=== PATIENT | female | born 1945 | race Caucasian/White ===

== ENCOUNTER 2017-02-12 18:01 | Observation (INO) ==
[2017-02-12 19:25] LABS: Basophils # (Auto) 0 K/mcL (0.0-0.3); Basophils % (Auto) 0.1 % (0.0-2.0); Eosinophils # (Auto) 0.3 K/mcL (0.0-0.7); Eosinophils % (Auto) 2.4 % (0.0-7.0); Granulocytes % (Auto) 83.9 % (38.0-78.0); Lymphocytes # (Auto) 1.1 K/mcL (1.5-4.8); Mean Cell Volume 90.4 fL (80.0-100.0); Mean Corpuscular Hemoglobin 29.8 pg (26.0-34.0); Monocytes # (Auto) 0.8 K/mcL (0.1-0.9); Monocytes % (Auto) 5.6 % (1.0-12.0); Platelet Count 286 K/mcL (140-440); RBC 4.25 M/mcL (4.00-5.20); Red Cell Distribution Width 14.5 % (11.5-14.5)
--- NOTE | 2017-02-12 19:32 | XRay Report ---
CLINICAL INFORMATION: Cough. Hypoxia. TECHNIQUE: Upright PA and lateral chest x-ray COMPARISON: Previous chest x-rays dated 03/20/2014 and 12/20/2009. Previous CT scan dated 04/01/2014 FINDINGS: Increased AP diameter and appearance consistent with COPD. Previous CT scan demonstrated extensive centrilobular emphysema suggesting smoking history. Heart size is within normal limits. Pulmonary vascularity is prominent consistent pulmonary congestion. This is unchanged. No pulmonary edema. Focal pleural-based density in the left lateral hemithorax. This is new since previous examinations. This may be benign but chest CT scan is recommended to exclude neoplasm. There is blunting of the costophrenic angles bilaterally. Findings are stable. No thoracic compression fractures. IMPRESSION: 1. COPD with history of centrilobular edema 2. Focal pleural-based density in the left lateral hemithorax. This is new since previous examinations. Chest CT scan recommended. 3. No evidence for congestive heart failure. No other focal pulmonary parenchymal abnormalities. Interpreted and Authenticated by: Ford Feliz 02/12/17
[2017-02-12 19:48] LABS: ALT/SGPT 19 U/l (0-40); Albumin 3.9 gm/dL (3.2-5.2); Albumin/Globulin Ratio 1.5 (1.0-2.3); Alkaline Phosphatase 81 U/L (39-117); Blood Urea Nitrogen 14 mg/dl (8-23)
--- NOTE | 2017-02-12 20:33 | Emergency Department Note ---
SOB HPI - General Chief Complaint: Shortness of Breath/Dyspnea Stated Complaint: COPD exacerbation Time Seen by Provider: 02/12/17 18:36 Source: patient Mode of arrival: EMS Limitations: no limitations - History of Present Illness The patient is a pleasant 71-year-old female with a history of COPD who presents with progressive shortness of breath. She reports it began a couple of days ago. She saw her primary care physician 2 days ago for this. She wasn' t on any antibiotics. Patient is also endorsing a mild productive cough with thick white sputum. She felt warm today but didn't take her temperature. Is chronically on 2 L of oxygen for her COPD but has had to increase that to 4 L to keep her oxygen saturations above 90%. Has home nebulizer with DuoNeb and has a home albuterol inhaler. She is uses nebulizer 4 times today and the inhaler a couple times. She reports that her primary care physician has been wanting to put her on a medication called Arnuity Elliptra. She has not yet started that. Patient's air-conditioning went on the house that she feels that the extra he really has contributed to her shortness of breath. She denies any nausea, vomiting or diarrhea. Also has history of osteoporosis and is on medication for that. Still smokes occasionally. MD Complaint: shortness of breath, cough Onset (ago): day(s) (3) Severity: moderate Improves with: oxygen, rest Worsens with: exertion Known history of: COPD Associated symptoms: Reports: denies other symptoms Treatment prior to arrival: oxygen - Related Data Home Medications Medication Instructions Recorded Confirmed acetaminophen 500 mg tablet 1,000 mg PO Q6H PRN tab 01/16/15 02/12/17 ascorbic acid (vitamin C) 500 mg 500 mg PO QDAY tab 01/16/15 02/12/17 tablet aspirin 81 mg tablet,delayed 81 mg PO .QOD tab 01/16/15 02/12/17 release calcium carbonate 600 mg (1,500 1 tab PO Q72 tab 01/16/15 02/12/17 mg)-vitamin D3 200 unit tablet cetirizine 10 mg capsule 10 mg PO QDAY PRN cap 01/16/15 02/12/17 multivitamin tablet 1 tab PO QDAY tab 01/16/15 02/12/17 omega-3 fatty acids 1,000 mg 1,000 mg PO QDAY cap 01/16/15 02/12/17 capsule Fluticasone Furoate [Arnuity 200 mcg INHALATION QDAY 02/12/17 02/12/17 Ellipta] Previous Rx's Medication Instructions Recorded potassium chloride ER 10 mEq 10 meq PO .QOD #45 cap 05/12/16 capsule,extended release teriparatide 20 mcg/dose (600 20 mcg SUB-Q QDAY #2.4 ml 10/12/16 mcg/2.4 mL) subcutaneous pen injector albuterol sulfate 90 mcg/actuation 2 puff INHALATION .Q4-6H PRN #360 11/08/16 breath activated powder inhaler puff hydrochlorothiazide 12.5 mg capsule 12.5 mg PO QDAY 90 Days 01/10/17 nitrofurantoin macrocrystal 100 mg 100 mg PO BID #14 cap 02/04/17 capsule amlodipine 10 mg tablet 10 mg PO QDAY 90 Days 02/09/17 ipratropium-albuterol 0.5 mg-3 3 ml INHALATION Q4-6H #540 ml 02/09/17 mg(2.5 mg base)/3 mL nebulization soln Allergies Allergy/AdvReac Type Severity Reaction Status Date / Time azithromycin Allergy Unknown Unknown Verified 02/10/17 10:34 codeine [CODEINE] Allergy Unknown TACYCARDIA Verified 02/10/17 10:34 House Dust Allergy Unknown Unknown Verified 02/10/17 10:34 niacin Allergy Unknown Unknown Verified 02/10/17 10:34 Fpdugep-Sqk-Xno Reductase Allergy Unknown Unknown Verified 02/10/17 10:34 Inhibitor Sulfa (Sulfonamide Allergy Unknown Hives Verified 02/10/17 10:34 Antibiotics) animal dander Allergy Unknown Unknown Uncoded 02/10/17 10:34 iv dye Allergy Unknown Unknown Uncoded 02/10/17 10:34 tape Allergy Unknown Unknown Uncoded 02/10/17 10:34 Review of Systems All systems ED: reviewed and negative except as stated. Past Medical History - Past Medical History Attestation: Yes: The following information was validated with the patient. Medical history: Reports: hyperlipidemia, hypertension, osteoporosis Surgical history ED: Reports: non-contributory - Social History smoking status: Current every day smoker Physical Exam - General Limitations: no limitations General appearance: alert, in no apparent distress, other (supplemental oxygen on, hair turbin on) - Head Head exam: atraumatic - Eye Eye exam: Present: normal appearance - ENT ENT exam: normal exam - Neck Neck exam: Present: normal inspection - Chest Chest inspection: Present: normal inspection, symmetric chest wall rise - Respiratory Respiratory exam: Present: other (rhonchi appreciated in the RLL, poor air movement diffusely, no wheezing appreciated) - Cardiovascular Cardiovascular exam: Present: regular rate, normal rhythm - Abdominal Exam Abdominal exam: Present: soft, normal bowel sounds - Neurological Exam Neurological exam: Present: alert, oriented X3 - Psychiatric Psychiatric exam: Present: normal affect, normal mood - Skin Skin exam: Present: warm, dry Course Course Narrative: Patient presents with symptoms of shortness of breath and a productive cough. She is requiring 4 L of oxygen to maintain her saturations in the 90s. Workup to include chest x-ray, lab work. Differential includes COPD exacerbation, pneumonia, heat stroke or bronchitis. Vital Signs Temperature 97.7 F 02/12/17 18:04 Pulse Rate 97 H 02/12/17 18:04 Respiratory Rate 20 02/12/17 18:04 Pulse Oximetry (%) 93 02/12/17 18:04 Temperature 97.7 F 02/12/17 18:04 Pulse Rate 85 02/12/17 22:10 Respiratory Rate 19 02/12/17 18:46 Blood Pressure 130/70 02/12/17 22:00 Pulse Oximetry (%) 94 02/12/17 22:10 Shortness of Breath/Dyspnea - [facility] Narrative Medical decision making narrative: Patient's chest x-ray returned showing increased pleural thickening on the left lower lateral costal margin compared to March 2014. Increased patchy scarlike opacity is were seen. No lung masses appreciated. Other than the mild leukocytosis at 13.5 patient had otherwise normal labs and vitals. She is requiring 4 L of supplemental oxygen to maintain her saturations. I feel that this picture is most likely a COPD exacerbation and will treat with prednisone and azithromycin. I feel that she warrants being admitted for further poor and treatment. Spoke to the the on-call hospitalist who graciously agreed to admit. - Lab Data Lab results reviewed: Yes I reviewed the patient's lab results. Result diagrams: 02/12/17 18:46 02/12/17 18:46 Lab Results 02/12/17 02/12/17 02/12/17 Range/Units 18:37 18:46 18:46 WBC 13.5 H (4.5-11.0) K/mcL RBC 4.25 (4.00-5.20) M/mcL Hgb 12.7 (12.0-15.0) g/dL Hct 38.4 (36.0-48.0) % MCV 90.4 (80.0-100.0) fL MCH 29.8 (26.0-34.0) pg MCHC 33.0 (31.0-36.0) g/dL RDW 14.5 (11.5-14.5) % Plt Count 286 (140-440) K/mcL MPV 10.1 (7.4-10.4) fL Gran % 83.9 H (38.0-78.0) % Lymph % (Auto) 8.0 L (15.5-49.0) % Meigs % (Auto) 5.6 (1.0-12.0) % Eos % (Auto) 2.4 (0.0-7.0) % Baso % (Auto) 0.1 (0.0-2.0) % Gran # 11.3 H (1.8-8.0) K/mcL Lymph # (Auto) 1.1 L (1.5-4.8) K/mcL Meigs # (Auto) 0.8 (0.1-0.9) K/mcL Eos # (Auto) 0.3 (0.0-0.7) K/mcL Baso # (Auto) 0 (0.0-0.3) K/mcL Sodium 136 (133-145) mmol/L Potassium 3.8 (3.3-5.1) mmol/L Chloride 92 L (96-108) mmol/L Carbon Dioxide 30 (22-30) mmol/L Anion Gap 14.0 (8-16) BUN 14 (8-23) mg/dl Creatinine 0.6 (0.6-1.1) mg/dl GFR Calculation 90 Glucose 247 H (70-105) mg/dL Calcium 9.1 (8.6-10.4) mg/dl Total Bilirubin < 0.2 (0.0-1.0) mg/dL AST 19 (0-37) U/l ALT 19 (0-40) U/l Alkaline Phosphatase 81 (39-117) U/L Total Protein 6.5 (5.9-8.4) gm/dL Albumin 3.9 (3.2-5.2) gm/dL Globulin 2.6 (2.2-3.7) gm/dL Albumin/Globulin Ratio 1.5 (1.0-2.3) Procalcitonin < 0.10 (<0.10) ng/mL - Radiology Data Radiology results reviewed: Yes I reviewed the patient's radiology results. "Increased pleural thickening along the left lower lateral costal margin compared to march 2014. Increased patchy scarlike opacities as above. No focal lung mass.: Disposition Clinical Impression: Acute exacerbation of chronic obstructive airways disease Disposition: Xfer As Inpt ([facility]) Condition: Fair Referrals: Martinez Salamanca PA-C [Primary Care Provider] -
[2017-02-12] MEDS ORDERED: predniSONE 20 MG TABLET PO ONE (22:19)
[2017-02-12] MEDS ORDERED: NALOXONE HCL 0.4 MG/ML VIAL IV PRN (23:40)
[2017-02-12] MEDS ORDERED: ONDANSETRON 4 MG/2 ML VIAL IV PRN (23:40)
[2017-02-12] MEDS ORDERED: HYDROcodone/APAP 5/325MG TABLET PO PRN (23:40)
[2017-02-12] MEDS ORDERED: ACETAMINOPHEN 325 MG TABLET PO PRN (23:40)
[2017-02-12] MEDS ORDERED: methylPREDNISolone SOD SUCC 125 MG/2 ML VIAL ONE ×2 (23:47)
--- NOTE | 2017-02-13 00:05 | Internal Med History&Physical ---
Medical - H&P: [facility] Patient information: Note initiated : 02/13/17 at 12:00 am Service Date, if different from initiated Date: [] Patient: Sangeetha Robertson 71 y/o F admitted on 02/12/17 for COPD exacerbation. Chief Complaint: [] History of present illness: Ms. Robertson is a 71 year old Female with h/o copd on 2 L home oxygen present to the ER with complaints of shortness of breath which has been going on for last few days. She notes that her AC broke down and this heat has been bothering her a lot. 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 SOB is associated with cough, whitish yellowish sputum, no hemoptysis. SOB better with rest and worse with activity, has tried using inhalers at home. she notes that her daughter may have been sick recently. she is on oral abx for UTI from her pcp and was seen recently there, even then there was increased oxygen requirement and increased shortness of breath, however it was deemed due to weather being hot? The patient otherwise does not report of any other issue. IN the ER she was no the to be hypoxic needing 4L oxygen and wheezing on exzam, WBC Was elevated, CXR neg for pna, some left sided pleural density noted, CT chest was done which showed pleural thickeing. Pt notes that she has had h/o pleurisy which later progressed to abscess and she needed thorocotomy for same. All systems: reviewed and no additional remarkable complaints except as stated ( as in HPI) Medical - H&P: PMH Medical history: Medical History (Last Updated 02/12/17 @ 22:19 by Althea Ramos MD) Adverse drug reaction (Chronic) Arm fracture (Chronic) Back pain (Chronic) COPD (chronic obstructive pulmonary disease) (Chronic) Foot fracture (Chronic) Hives (Chronic) Hyperglycemia (Chronic) Hypertension (Chronic) Kyphosis (acquired) (postural) (Chronic) Lung abscess (Chronic) Nuclear sclerosis (Chronic) Osteoarthritis (Chronic) Osteoporosis (Chronic) Ovarian cyst (Chronic) Tobacco abuse (Chronic) Surgical history: Past Surgical History (Last Updated 12/23/16 @ 14:23 by [place]) H/O: hysterectomy (Chronic) History of lung surgery (Chronic) History of throat surgery (Chronic) Hx of tonsillectomy (Chronic) S/P bladder repair (Chronic) Pertinent family history: Family History Mother Myocardial Infarction Psychiatric care Father Diabetes mellitus Acute myocardial infarction Alcohol abuse Grandmother Cerebrovascular accident Brother Alcohol abuse Medical - H&P: Meds Home Medications Medication Instructions Recorded Confirmed Type acetaminophen 500 mg tablet 1,000 mg PO Q6H PRN tab 01/16/15 02/12/17 History ascorbic acid (vitamin C) 500 mg 500 mg PO QDAY tab 01/16/15 02/12/17 History tablet aspirin 81 mg tablet,delayed 81 mg PO .QOD tab 01/16/15 02/12/17 History release calcium carbonate 600 mg (1,500 1 tab PO Q72 tab 01/16/15 02/12/17 History mg)-vitamin D3 200 unit tablet cetirizine 10 mg capsule 10 mg PO QDAY PRN cap 01/16/15 02/12/17 History multivitamin tablet 1 tab PO QDAY tab 01/16/15 02/12/17 History omega-3 fatty acids 1,000 mg 1,000 mg PO QDAY cap 01/16/15 02/12/17 History capsule potassium chloride ER 10 mEq 10 meq PO .QOD #45 cap 05/12/16 02/12/17 Rx capsule,extended release teriparatide 20 mcg/dose (600 20 mcg SUB-Q QDAY #2.4 ml 10/12/16 02/12/17 Rx mcg/2.4 mL) subcutaneous pen injector albuterol sulfate 90 mcg/actuation 2 puff INHALATION .Q4-6H PRN #360 11/08/16 Rx breath activated powder inhaler puff hydrochlorothiazide 12.5 mg capsule 12.5 mg PO QDAY 90 Days 01/10/17 02/12/17 Rx nitrofurantoin macrocrystal 100 mg 100 mg PO BID #14 cap 02/04/17 02/12/17 Rx capsule amlodipine 10 mg tablet 10 mg PO QDAY 90 Days 02/09/17 02/12/17 Rx ipratropium-albuterol 0.5 mg-3 3 ml INHALATION Q4-6H #540 ml 02/09/17 02/12/17 Rx mg(2.5 mg base)/3 mL nebulization soln Fluticasone Furoate [Arnuity 200 mcg INHALATION QDAY 02/12/17 02/12/17 History Ellipta] Allergies Allergy/AdvReac Type Severity Reaction Status Date / Time azithromycin Allergy Unknown Unknown Verified 02/10/17 10:34 codeine [CODEINE] Allergy Unknown TACYCARDIA Verified 02/10/17 10:34 House Dust Allergy Unknown Unknown Verified 02/10/17 10:34 niacin Allergy Unknown Unknown Verified 02/10/17 10:34 Tygjpgl-Zzh-Tsu Reductase Allergy Unknown Unknown Verified 02/10/17 10:34 Inhibitor Sulfa (Sulfonamide Allergy Unknown Hives Verified 02/10/17 10:34 Antibiotics) animal dander Allergy Unknown Unknown Uncoded 02/10/17 10:34 iv dye Allergy Unknown Unknown Uncoded 02/10/17 10:34 tape Allergy Unknown Unknown Uncoded 02/10/17 10:34 Medical - H&P: Exam - Constitutional Vitals: Temp Pulse Resp BP Pulse Ox 98.5 F 85 25 H 144/76 95 02/12/17 23:36 02/12/17 23:36 02/12/17 23:36 02/12/17 23:36 02/12/17 23:19 Exam: GENERAL: The patient is a well-developed, well-nourished in no apparent distress. Is alert and oriented x3. VITAL SIGNS: Reviewed and as noted elsewhere. HEENT: Head is normocephalic and atraumatic. Extraocular muscles are intact. Pupils are equal, round, and reactive to light. Nares appeared normal. Mouth appears any without lesions. Mucous membranes are moist. NECK: Normal to inspection, Supple, No lymbut air entry is dimished bilaterally , prolonged exp phase, chanda wheezing noted. HEART: Regular rate and rhythm normal, S1 and S2 heard, no Gallop, S3 or Rub Noted, No Gross murmur heard. ABDOMEN: Soft, nontender, and nondistended. Positive bowel sounds. No hepatosplenomegaly was noted. EXTREMITIES: No cyanosis, clubbing, rash, lesions or edema. NEUROLOGIC: Cranial nerves II through XII are grossly intact. Motor and Sensory System Grossly Intact PSYCHIATRIC: Normal affect, Normal Mood. Appropriate Behavior. SKIN: No ulceration or wounds noted, No jaundice, No rash noted. Medical - H&P: Reslt - Labs CBC & Chem 7: 02/12/17 18:46 02/12/17 18:46 Medical - H&P: A/P - Narrative A/P Narrative: a/P Acute on chr resp failure: used to take 2 L oxygen now on 4L, continue oxygen supplementation, treat underlying condition. Acute exaceration of Copd: treat with doxycycline (allergic to zithromax), IV steroids and duonebs, monitor on tele for now. No recent hospital admits or steroids use for copd. UTI: check ua, was on macrobid at home, continue same for now, recent cx neg, HTN: continue home bp meds Osteoporosis: ON teriperitadie, I do not think we have this medication on formulary, advised to get it from home so she can continue her therapy. DVT hep sq Diet regular Activity as tolerated DNR Social History - Tobacco smoking status: Current every day smoker - Tobacco Type tobacco type: cigarettes - Cigarette Details per day: 10 - Quit Details quit date: 08/23/13 - Alcohol alcohol intake frequency: does not drink
[2017-02-13] MEDS ORDERED: IPRATROPIUM/ALBUTEROL 3 ML AMPUL.NEB NEB ONE (00:12)
[2017-02-13] MEDS: IPRATROPIUM/ALBUTEROL 3 ML AMPUL.NEB NEB SCH ×7 (00:16→22:54)
[2017-02-13] MEDS: methylPREDNISolone SOD SUCC 125 MG/2 ML VIAL IV SCH ×4 (00:28→22:13)
[2017-02-13] MEDS: DOXYCYCLINE HYCLATE 100 MG TABLET.ORL PO SCH ×3 (00:29→20:59)
[2017-02-13 01:24] LABS: Appearance,Urine CLEAR; Bacteria,Urine 0 /hpf (0); Bilirubin,Urine NEG (NEG); Color,Urine YELLOW; Glucose,Urine (UA) NEGATIVE (NEG); Leukocyte Esterase,Urine 75 /uL (NEG); Mucus,Urine FEW /hpf (0); Nitrate,Urine NEG (NEG); Protein,Urine NEG (NEG); Specific Gravity,Urine 1.011 (1.000-1.035); Urine Blood NEG mg/dL (<0.03); Urine RBC 1 /hpf (0-1); Urine Squamous Epithelial Cell 2 /hpf (0-4); Urine Transitional Epi Cells < 1 /hpf (0-2); Urine WBC 1 /hpf (0-4); Urobilinogen,Urine NEG (NEG)
[2017-02-13] MEDS ORDERED: methylPREDNISolone SOD SUCC 125 MG/2 ML VIAL ONE (05:34)
--- NOTE | 2017-02-13 07:16 | Cat Scan Report ---
CLINICAL INFORMATION: Smoking history. COPD exacerbation. History of previous partial left pneumonectomy COMPARISON: Chest x-ray dated 02/12/[address] scan dated 04/01/2014 TECHNIQUE: Axial noncontrast enhanced images through the chest. Sagittally and coronally reformatted images. MIP reformatted images. Patient gives a history of contrast allergy FINDINGS: Severe centrilobular emphysema. Previous chest x-ray demonstrated a focal pleural-based density in the left lateral hemithorax. There is nonspecific pleural thickening. Patient gives a history of previous left lung surgery. No left rib mass or fracture. Appearance is consistent with nonspecific pleural thickening and is not considered typical of neoplasm. There is no free pleural fluid. Right lung is negative for focal mass or infiltrate. No pneumonia. Toña and mediastinum are negative to limits of noncontrast enhanced examination. No definite pathologic adenopathy. No axillary or supraclavicular adenopathy. No acute thoracic compression fractures. No rib fractures or lytic lesions. No sternal lesion. Upper abdomen is negative. There is dense calcification of the abdominal aorta. There is dense coronary artery calcification. Examination was initially interpreted by [facility] IMPRESSION: 1. Severe COPD with centrilobular emphysema consistent with smoking history 2. Left lateral pleural thickening appears nonneoplastic. 3. No acute or focal parenchymal infiltrate. 4. Severe calcified atherosclerotic plaque including coronary artery disease Interpreted and Authenticated by: Ford Feliz 02/13/17
[2017-02-13] MEDS ORDERED: MULTIVITAMIN PO SCH (09:00)
[2017-02-13] MEDS ORDERED: CETIRIZINE 10 MG TABLET PO PRN (09:00)
[2017-02-13] MEDS ORDERED: FLUTICASONE FUROATE 200 MCG INHALATION SCH (09:00)
[2017-02-13] MEDS ORDERED: ASPIRIN 81 MG TAB.CHEW PO SCH (09:00)
[2017-02-13] MEDS ORDERED: TERIPARATIDE 20 MCG SUB-Q SCH (09:00)
[2017-02-13 09:11] LABS: Basophils # (Auto) 0 K/mcL (0.0-0.3); Basophils % (Auto) 0.5 % (0.0-2.0); Eosinophils # (Auto) 0 K/mcL (0.0-0.7); Eosinophils % (Auto) 0.1 % (0.0-7.0); Lymphocytes # (Auto) 0.9 K/mcL (1.5-4.8); Lymphocytes % (Auto) 8.8 % (15.5-49.0); Mean Cell Volume 90.2 fL (80.0-100.0); Mean Corpuscular HGB Conc 32.9 g/dL (31.0-36.0); Mean Corpuscular Hemoglobin 29.7 pg (26.0-34.0); Monocytes # (Auto) 0.1 K/mcL (0.1-0.9); Monocytes % (Auto) 0.6 % (1.0-12.0); Platelet Count 272 K/mcL (140-440); RBC 4.58 M/mcL (4.00-5.20); Red Cell Distribution Width 14.4 % (11.5-14.5)
[2017-02-13 09:42] LABS: ALT/SGPT 20 U/l (0-40); Albumin/Globulin Ratio 1.3 (1.0-2.3); Alkaline Phosphatase 84 U/L (39-117); Bilirubin,Direct < 0.2 mg/dL (0.0-0.3); Blood Urea Nitrogen 10 mg/dl (8-23); Gamma Glutamyl Transpeptidase 18 U/L (5-36); Magnesium 1.7 mg/dL (1.6-2.5); Uric Acid 4.7 mg/dL (2.5-8.0)
[2017-02-13] MEDS: HYDROCHLOROTHIAZIDE 12.5 MG CAPSULE PO SCH (11:55)
[2017-02-13] MEDS: ASCORBIC ACID 500 MG TABLET PO SCH (11:55)
[2017-02-13] MEDS: MULTIVIT,THER IRON,CA,FA & MIN 1 TABLET PO SCH (11:56)
[2017-02-13] MEDS: HEPARIN 5,000 UNIT/ML VIAL SQ SCH ×2 (11:58→20:58)
[2017-02-13] MEDS: amLODIPine 10 MG TABLET PO SCH (11:59)
[2017-02-13] MEDS: FAMOTIDINE/PF 20 MG/2 ML VIAL IV SCH ×2 (11:59→20:58)
[2017-02-13] MEDS: FISH OIL 1,000 MG CAPSULE PO SCH (11:59)
[2017-02-13] MEDS: NITROFURANTOIN SR 100 MG CAPSULE PO SCH ×2 (12:02→20:59)
--- NOTE | 2017-02-13 15:25 | Internal Med Progress Note ---
Medical - PN: Subj Patient information: Note initiated : 02/13/17 at 3:22 pm Service Date, if different from initiated Date: [] Patient: Sangeetha Robertson 71 y/o F admitted on 02/12/17 for COPD exacerbation. Chief Complaint: [] Interval history: Ms. Robertson is a 71 year old Female with h/o copd on 2 L home oxygen present to the ER with complaints of shortness of breath which has been going on for last few days. She notes that her AC broke down and this heat has been bothering her a lot. 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 SOB is associated with cough, whitish yellowish sputum, no hemoptysis. SOB better with rest and worse with activity, has tried using inhalers at home. she notes that her daughter may have been sick recently. she is on oral abx for UTI from her pcp and was seen recently there, even then there was increased oxygen requirement and increased shortness of breath, however it was deemed due to weather being hot? The patient otherwise does not report of any other issue. IN the ER she was no the to be hypoxic needing 4L oxygen and wheezing on exzam, WBC Was elevated, CXR neg for pna, some left sided pleural density noted, CT chest was done which showed pleural thickening. Pt notes that she has had h/o pleurisy which later progressed to abscess and she needed thoracotomy for same. 04/16: patient seen examined, sitting comfortably in her chair, still on 4 l oxygen, feels subjectively better today, denies any complaints, besides cough and shortness of breath She is tolerating po well. Pertinent ROS: Denies headache, dizziness Denies chest pain, palpitations Present cough and shortness of breath Denies abdominal pain, nausea or vomiting. - Constitutional Vitals: Vital Signs Temp Pulse Resp BP Pulse Ox 97.0 F 85 22 165/83 93 02/13/17 12:00 02/13/17 12:25 02/13/17 12:25 02/13/17 12:00 02/13/17 12:00 Period Temp Pulse Resp BP Sys/Richter Pulse Ox Last 24 Hr 97.0 F-98.5 F 85-90 18-25 118-165/69-86 90-97 Intake and Output 02/13/17 02/13/17 02/13/17 05:59 13:59 21:59 Intake Total 560 / 560 Output Total 0 / 0 200 / 200 900 / 900 Balance 0 / 0 360 / 360 -900 / -900 Intake & Output: Intake & Output 02/13/17 02/13/17 02/13/17 05:59 13:59 21:59 Intake Total 560 / 560 Output Total 0 / 0 200 / 200 900 / 900 Balance 0 / 0 360 / 360 -900 / -900 Intake: Oral 560 / 560 Output: Void Amount 0 / 0 200 / 200 900 / 900 Other: Meal Breakfast Percent of Meal Consumed 100% Feeding Ability Independent # Voids 1 # Bowel Movements 1 Exam: Constitutional; Afebrile, cooperative, alert, not in distress. Eyes- No icterus, , No periorbital swelling Ears- Ext ear normal, hearing normal to conversation. Neck- Midline trachea, supple Respiratory system: Air Entry equal on both sides, decreased air entry chanda, mild wheeze and prolonged exp phase. CVS- Rate rhythm regular, S1,S2 heard, no gallop, no rub. Abdomen- Soft nontender abdomen, no organomegaly, no tenderness, no guarding or rigidity, GUT PULLER- AOOx3, moving all extremities, no gross focal deficit noted. Medical - PN: Obj Da - Labs CBC & Chem 7: 02/13/17 08:40 02/13/17 08:40 Labs: Abnormal Lab Results 02/13/17 02/13/17 08:40 08:40 Gran % 90.0 H Lymph % (Auto) 8.8 L [place] % (Auto) 0.6 L Gran # 9.4 H Lymph # (Auto) 0.9 L Chloride 91 L Creatinine 0.5 L Glucose 182 H Meds: Medications Acetaminophen (Tylenol) 650 mg PO Q6HP PRN PRN Reason: PAIN/FEVER > 101 Hydrocodone Bitart/Acetaminophen ([place] 5/325mg) 1 tab PO Q4HP PRN PRN Reason: Pain Albuterol/Ipratropium (Duoneb) 3 ml NEB Q4HRT [facility] Last Admin: 02/13/17 12:25 Dose: 3 ml Amlodipine Besylate (Norvasc) 10 mg PO QDAY [facility] Last Admin: 02/13/17 11:59 Dose: 10 mg Ascorbic Acid (Vitamin C) 500 mg PO QDAY [facility] Last Admin: 02/13/17 11:55 Dose: 500 mg Aspirin (Aspirin) 81 mg PO Q48@0900 [facility] Last Admin: 02/13/17 11:55 Dose: 81 mg Calcium/Vitamin D (Calcium W/Vit D3) 500 mg PO Q72@0900 [facility] Cetirizine HCl (Zyrtec) 10 mg PO DAILYP PRN PRN Reason: Allergic Symptoms Doxycycline Hyclate (Doxycycline Hyclate) 100 mg PO BID [facility] Last Admin: 02/13/17 11:56 Dose: 100 mg Famotidine (Pepcid) 20 mg IV Q12 [facility] Last Admin: 02/13/17 11:59 Dose: 20 mg Fish Oil (Fish Oil) 1,000 mg PO DAILY [facility] Last Admin: 02/13/17 11:59 Dose: 1,000 mg Heparin Sodium (Porcine) (Heparin) 5,000 unit SQ Q12 [facility] Last Admin: 02/13/17 11:58 Dose: Not Given Hydrochlorothiazide (Oretic) 12.5 mg PO QDAY [facility] Last Admin: 02/13/17 11:55 Dose: 12.5 mg Iron Carb/Multivit/[place]/Folic Acid (Multivitamin W/Minerals) 1 tab PO DAILY [facility] Last Admin: 02/13/17 11:56 Dose: 1 tab Methylprednisolone Sodium Succinate (Solu-Medrol) 62.5 mg IV Q8 [facility] Last Admin: 02/13/17 15:17 Dose: 62.5 mg Naloxone HCl (Narcan) 0.1 mg IV Q2MIN PRN PRN Reason: Opiate Reversal Nitrofurantoin Macrocrystals (Macrobid) 100 mg PO BID [facility] Last Admin: 02/13/17 12:02 Dose: Not Given Ondansetron HCl (Zofran) 4 mg IV Q4HP PRN PRN Reason: Nausea And Vomiting Fluticasone Furoate [Arnuity Ellipta] 200 Mcg Inhaler 1 dose INH DAILY [facility] Last Admin: 02/13/17 12:03 Dose: Not Given Teriparatide [Forteo (] 20 Mcg Solution) 1 dose SUB-Q QDAY [facility] Potassium Chloride (Kdur) 10 meq PO Q48@0800 [facility] Medical - PN: A/P - Time Spent With Patient Total time spent is greater than 50% in coordination of care (as documented) at patient's floor/unit and/or counseling patient: - Narrative A/P Narrative: a/P Acute on chr resp failure: used to take 2 L oxygen now on 4L, continue oxygen supplementation, treat underlying condition. Acute exaceration of Copd: treat with doxycycline (allergic to zithromax), IV steroids and duonebs, monitor on tele for now. No recent hospital admits or steroids use for copd. subjective she feels better, wheezing better UTI: ua neg, continue macrobid HTN: continue home bp meds Osteoporosis: ON teriparatide, I do not think we have this medication on formulary, advised to get it from home so she can continue her therapy. DVT hep sq Diet regular Activity as tolerated DNR Medical - PN: Qual - VTE Deep Vein Thrombosis/Pulmonary Embolism Present on Admission: No
[2017-02-14] MEDS: IPRATROPIUM/ALBUTEROL 3 ML AMPUL.NEB NEB SCH ×3 (02:56→11:41)
[2017-02-14 05:10] LABS: Basophils # (Auto) 0 K/mcL (0.0-0.3); Basophils % (Auto) 0 % (0.0-2.0); Eosinophils # (Auto) 0 K/mcL (0.0-0.7); Eosinophils % (Auto) 0 % (0.0-7.0); Granulocytes % (Auto) 89.8 % (38.0-78.0); Lymphocytes # (Auto) 1.3 K/mcL (1.5-4.8); Mean Cell Volume 90.6 fL (80.0-100.0); Mean Corpuscular Hemoglobin 29.9 pg (26.0-34.0); Monocytes # (Auto) 0.3 K/mcL (0.1-0.9); Monocytes % (Auto) 2.2 % (1.0-12.0); Platelet Count 262 K/mcL (140-440); RBC 4.14 M/mcL (4.00-5.20); Red Cell Distribution Width 14.4 % (11.5-14.5)
[2017-02-14] MEDS: methylPREDNISolone SOD SUCC 125 MG/2 ML VIAL IV SCH (05:43)
[2017-02-14 05:46] LABS: ALT/SGPT 21 U/l (0-40); Albumin/Globulin Ratio 1.6 (1.0-2.3); Alkaline Phosphatase 71 U/L (39-117); Bilirubin,Direct < 0.2 mg/dL (0.0-0.3); Blood Urea Nitrogen 14 mg/dl (8-23); Gamma Glutamyl Transpeptidase 17 U/L (5-36); Uric Acid 5.4 mg/dL (2.5-8.0)
[2017-02-14] MEDS ORDERED: POTASSIUM CHLORIDE 10 MEQ TABLET PO SCH (08:00)
[2017-02-14] MEDS: HYDROCHLOROTHIAZIDE 12.5 MG CAPSULE PO SCH (08:32)
[2017-02-14] MEDS: amLODIPine 10 MG TABLET PO SCH (08:32)
[2017-02-14] MEDS: FISH OIL 1,000 MG CAPSULE PO SCH (08:33)
[2017-02-14] MEDS: ASCORBIC ACID 500 MG TABLET PO SCH (08:33)
[2017-02-14] MEDS: MULTIVIT,THER IRON,CA,FA & MIN 1 TABLET PO SCH (08:33)
[2017-02-14] MEDS: DOXYCYCLINE HYCLATE 100 MG TABLET.ORL PO SCH (08:33)
[2017-02-14] MEDS: FAMOTIDINE/PF 20 MG/2 ML VIAL IV SCH (08:34)
[2017-02-14] MEDS: NITROFURANTOIN SR 100 MG CAPSULE PO SCH (08:34)
[2017-02-14] MEDS: HEPARIN 5,000 UNIT/ML VIAL SQ SCH ×2 (08:34→08:52)
[2017-02-14] MEDS ORDERED: CALCIUM W/VIT D3 500 MG TABLET PO SCH (09:00)
[2017-02-14] MEDS ORDERED: TERIPARATIDE 20 MCG SUB-Q SCH (09:00)
--- NOTE | 2017-02-14 10:28 | Discharge Summary ---
Medical - DS: Prov Patient information: Note initiated : 02/14/17 at 10:28 am Patient: Sangeetha Robertson 71 y/o F admitted on 02/12/17 for COPD exacerbation. Date of admission: 02/12/17 23:30 Discharge date: 02/14/17 Primary care physician: TREVOR Mccormick. Phone number [phone] Admitting clinician: Maria Sullivan Attending physician on discharge: Katherine Thomas Medical - DS: Meds - Discharge Medications Prescriptions: Doxycycline Hyclate 100 mg PO BID #14 predniSONE [Prednisone] 10 mg PO QAC #21 tablet Active and Home Medications: Discharge medications: Doxycycline 100 mg p.o. twice daily for 7 more days Prednisone taper: Start with 60 mg daily tomorrow, and taper by 10 mg per day until gone Tylenol 650 mg every 6 hours as needed Duo nebs 3 mL every 4-6 hours Norvasc 10 mg daily Vitamin C 500 mg daily Aspirin 81 mg every 48 hours Calcium 500+ D5 100 q. 3 days Zyrtec 10 mg daily as needed allergies Fish oil 1000 mg daily Our new DE left eye 200 mcg 1 inhalation daily HCTZ 12.5 mg daily Multivitamin with minerals 1 daily Potassium chloride 10 mEq p.o. every 48 hours Forteo 20 mcg subcu daily Discontinue nitrofurantoin Previous home Medications: acetaminophen 500 mg tablet 1,000 mg PO Q6H PRN tab 01/16/15 [History Confirmed 02/12/17 Last Taken Unknown] ascorbic acid (vitamin C) 500 mg tablet 500 mg PO QDAY tab 01/16/15 [History Confirmed 02/12/17 Last Taken Unknown] aspirin 81 mg tablet,delayed release 81 mg PO .QOD tab 01/16/15 [History Confirmed 02/12/17 Last Taken Unknown] calcium carbonate 600 mg (1,500 mg)-vitamin D3 200 unit tablet 1 tab PO Q72 tab 01/16/15 [History Confirmed 02/12/17 Last Taken Unknown] cetirizine 10 mg capsule 10 mg PO QDAY PRN cap 01/16/15 [History Confirmed 03/24 Last Taken Unknown] multivitamin tablet 1 tab PO QDAY tab 01/16/15 [History Confirmed 02/12/17 Last Taken Unknown] omega-3 fatty acids 1,000 mg capsule 1,000 mg PO QDAY cap 01/16/15 [History Confirmed 02/12/17 Last Taken Unknown] potassium chloride ER 10 mEq capsule,extended release 10 meq PO .QOD #45 cap 12/21 [Rx Confirmed 02/12/17 Last Taken Unknown] teriparatide 20 mcg/dose (600 mcg/2.4 mL) subcutaneous pen injector 20 mcg SUB- Q QDAY #2.4 ml 10/12/16 [Rx Confirmed 02/12/17 Last Taken Unknown] albuterol sulfate 90 mcg/actuation breath activated powder inhaler 2 puff INHALATION .Q4-6H PRN #360 puff 11/08/16 [Rx Confirmed 02/12/17 Last Taken Unknown] hydrochlorothiazide 12.5 mg capsule 12.5 mg PO QDAY 90 Days 01/10/17 [Rx Confirmed 02/12/17 Last Taken Unknown] nitrofurantoin macrocrystal 100 mg capsule 100 mg PO BID #14 cap 02/04/17 [Rx Confirmed 02/12/17 Last Taken Unknown] amlodipine 10 mg tablet 10 mg PO QDAY 90 Days 02/09/17 [Rx Confirmed 02/12/17 Last Taken Unknown] ipratropium-albuterol 0.5 mg-3 mg(2.5 mg base)/3 mL nebulization soln 3 ml INHALATION Q4-6H #540 ml 02/09/17 [Rx Confirmed 02/12/17 Last Taken Unknown] Fluticasone Furoate [Arnuity Ellipta] 200 mcg INHALATION QDAY 02/12/17 [History Confirmed 02/12/17 Last Taken Unknown] Medical - DS: Hosp Hospital course: Mr. Robertson is a 71 year old F February 12, 2017: History of present illness: Ms. Robertson is a 71 year old Female with h/o copd on 2 L home oxygen present to the ER with complaints of shortness of breath which has been going on for last few days. She notes that her AC broke down and this heat has been bothering her a lot. She noted that her shortness of breath got worse yesterday and today, and therefore she presented ot the ER At baseline she is able to her ADL and ride a vp project, but now even ambulation in house cause shortness of breath. SOB is associated with cough, whitish yellowish sputum, no hemoptysis. SOB better with rest and worse with activity, has tried using inhalers at home. she notes that her daughter may have been sick recently. -she is on oral abx (Macrobid), for UTI, from her pcp and was seen recently there, even then there was increased oxygen requirement and increased shortness of breath, however it was deemed due to weather being hot? The patient otherwise does not report of any other issue. IN the ER she was noted to be hypoxic needing 4L oxygen and wheezing on exam, WBC Was elevated, CXR neg for pna, some left sided pleural density noted, CT chest was done which showed pleural thickening. Pt notes that she has had h/o pleurisy which later progressed to abscess and she needed thoracotomy for same. February 14, 2017: Hospital course: The patient was admitted and treated with oral doxycycline to cover atypicals, as well as IV Solu-Medrol, frequent duo nebs, oxygen at 4 L. She has improved quite a bit, and is now feeling nearly back to baseline. When she ambulates with 2 L of oxygen via nasal cannula, her O2 saturations dropped to 88 or 89% today. She notes that she was having more trouble breathing at home since her air conditioner . They are using fans currently, and she is trying to get her air conditioning fixed. She does feel ready to return home today. She denies current fever or chills, sore throat, chest pain or palpitations. She has minimal shortness of breath with exertion. She denies GI or symptoms. On exam, she is a well-developed well-nourished white female, who was walking quite quickly down the hallway with physical therapy, without needing a walker. Neck is supple without obvious JVD. Cardiac exam shows regular rate and rhythm. Lungs had slightly decreased breath sounds, but otherwise were clear. Abdomen is soft and nontender. Extremities show no edema. Neurologic exam is grossly nonfocal. A/P Narrative: #1. Acute on chr resp failure: -The patient presented with COPD exacerbation. Pneumonia was not confirmed on chest x-ray. She was treated with IV steroids, and will be transitioned to an oral prednisone taper today. We will continue with oral doxycycline to cover possible atypicals. She can go back to using her normal 2 L of oxygen, continuous. She will continue with duo nebs 4-6 times a day. #2. UTI: ua neg, will discontinue Macrobid at this time. #3. HTN: Blood pressure has been controlled. I am not convinced that she needs to continue with the HCTZ, particularly during the hot summer weather. She should follow-up on this issue with her primary care physician. #4. Osteoporosis: ON teriparatide, continue. #5. DVT hep sq was used. #6. DNR #7. Hematologic. White blood cell count is elevated today, but I expect that is from IV steroids. Clinically the patient is improved. #8. Severe atherosclerosis, seen on chest CT. Continue baby aspirin daily. I would consider adding back us trial of a statin , such as pravastatin, or possibly red yeast rice, with coenzyme Q 10, to cut down on any muscle symptoms. This visit took approximately 35 minutes today, to review the patient's chart, review her test results, interview and examine her, review plan of care with staff, and write orders and prescriptions. Discharge diagnosis: COPD exacerbation. Acute on chronic respiratory failure. UTI. Secondary discharge diagnosis: Atherosclerosis. Osteoporosis. Hypertension. - Time Spent with Patient Total time spent providing and/or coordinating discharge services: Greater than 30 minutes Medical - DS: Exam - Constitutional Vitals: Vital Signs Temp Pulse Pulse Resp BP Pulse Ox 02/14/17 07:44 97.7 F 73 16 104/57 91 02/14/17 07:10 75 16 96 02/14/17 07:00 75 16 02/14/17 04:00 97.6 F 20 116/66 95 02/14/17 00:00 97.4 F 85 20 127/73 96 02/13/17 22:56 95 02/13/17 22:55 84 22 94 02/13/17 22:54 84 22 02/13/17 20:00 98.6 F 101 H 24 H 150/90 92 02/13/17 18:58 95 02/13/17 18:57 84 20 02/13/17 15:55 97.5 F 18 123/77 93 02/13/17 15:31 85 22 95 02/13/17 15:30 85 22 02/13/17 12:25 85 22 02/13/17 12:00 97.0 F 22 165/83 93 Intake and Output 02/13/17 02/14/17 02/14/17 21:59 05:59 13:59 Intake Total 300 / 300 360 / 360 Output Total 2149 / 2149 1025 / 1025 Balance -1850 / -1850 -665 / -665 Intake: Oral 300 / 300 360 / 360 Output: Void Amount 2149 / 2149 1025 / 1025 Other: Meal Dinner Percent of Meal Consumed 100% Feeding Ability Independent # Voids 6 1 Weight 119 lb Medical - DS: Data Labs on day of discharge: Labs from last 24 hours 02/14/17 02/14/17 03:46 03:46 WBC 15.7 H RBC 4.14 Hgb 12.4 Hct 37.5 MCV 90.6 MCH 29.9 MCHC 33.0 RDW 14.4 Plt Count 262 MPV 10.2 Gran % 89.8 H Lymph % (Auto) 8.0 L [place] % (Auto) 2.2 Eos % (Auto) 0 Baso % (Auto) 0 Gran # 14.1 H Lymph # (Auto) 1.3 L [place] # (Auto) 0.3 Eos # (Auto) 0 Baso # (Auto) 0 Sodium 139 Potassium 3.7 Chloride 99 Carbon Dioxide 31 H Anion Gap 9.0 BUN 14 Creatinine 0.5 L GFR Calculation 96 Glucose 154 H Uric Acid 5.4 Calcium 9.5 Phosphorus 2.8 Magnesium 2.0 Total Bilirubin < 0.2 Direct Bilirubin < 0.2 GGT 17 AST 16 ALT 21 Alkaline Phosphatase 71 Lactate Dehydrogenase 195 Total Protein 6.5 Albumin 4.0 Globulin 2.5 Albumin/Globulin Ratio 1.6 Triglycerides 51 White blood cell count was 13,500 on admission, and dropped to 10,000 the following day, but bumped up to 15,000 today, likely due to steroids. February 13: EKG showed sinus rhythm at a rate of 88. Slow R-wave progression. February 12: CT of the chest: Severe COPD with centrilobular emphysema. Left lateral pleural thickening. No infiltrate seen. Severe atherosclerotic plaquing including coronary arteries. Medical - DS: A/P - Patient/Caregiver Discharge Instructions Activity: increase activity as tolerated Diet: Cardiac Additional Instructions: 1. Take doxycycline, twice a day, until gone. Next 2. Start prednisone taper, 60 mg a day to start, decrease by 10 mg each day, until gone. 3. Continue duo nebs 4-6 times a day. Continue fluticasone inhaler daily. #4. Try to get your air-conditioning fixed as soon as possible. #5. Cholesterol plaques were seen in your arteries on your CAT scan. Consider another trial of cholesterol medicine, such as pravastatin, or red yeast rice plus coenzyme Q 10. 6. Discontinue nitrofurantoin. Your bladder infection was quite mild. Prescriptions: Doxycycline Hyclate 100 mg PO BID #14 predniSONE [Prednisone] 10 mg PO [facility] #21 tablet - Follow up Plan Follow up with: Martinez Salamanca PA-C [Primary Care Provider] - 02/21/17 10:00 am Disposition: Home, Self-Care Prognosis: Fair Rehab Potential: Fair Overall status at discharge: patient is progressing back to baseline Medical - DS: Qual - VTE Deep Vein Thrombosis/Pulmonary Embolism Present on Admission: No
== END 2017-02-14 13:47 | disposition home or self-care (01) ==
LOC: ED 18:01 → ICU 18:01 → SUATTDRO 23:30
PROVIDERS: ADMIT Internal Medicine; ATTEND Internal Medicine